=== PATIENT | female | born 1970 | race Caucasian/White ===

== ENCOUNTER 2016-06-07 09:47 | Observation (INO) | payer BC ==
[2016-06-07] MEDS ORDERED: ASPIRIN 81 MG CHEW PO STA (10:29)
[2016-06-07] MEDS ORDERED: SODIUM CHLORIDE 0.9% 1,000 ML IV STA (10:29)
[2016-06-07] MEDS ORDERED: ONDANSETRON 4 MG/2 ML VIAL IVP STA (10:29)
[2016-06-07] MEDS ORDERED: MECLIZINE 12.5 MG TAB PO STA (10:29)
--- NOTE | 2016-06-07 10:33 | ED ---
General Adult HPI <Bernabe Barber - Last Filed: 06/07/16 12:28> - General Source: patient, RN notes reviewed Mode of arrival: ambulatory Limitations: no limitations <Pratik Diaz - Last Filed: 06/07/16 12:43> - General Chief complaint: Chest Pain Stated complaint: Chest pain Time Seen by Provider: 06/07/16 10:20 - History of Present Illness Initial comments: Patient 45-year-old female who presents emergency room today with a chief complaint of chest pain over the last week. Patient does admit that she's felt some palpitations on and off. She does admit some discomfort of left-sided chest wall describes as pressure. Patient rates it a /10. She also admits that she's had some symptoms of dizziness off-and-on as well. She states increased dizziness this morning. She does admit to a family history of cardiac disease. She denies any other complaints or symptoms currently. Patient denies any recent fever, chills, shortness of breath, back pain, abdominal pain, nausea or vomiting, numbness or tingling, dysuria or hematuria, constipation or diarrhea, headaches or visual changes, or any other complaints. (Pratik Diaz) - Related Data Home Medications Medication Instructions Recorded Confirmed Ergocalciferol (Vitamin D2) 50,000 unit PO MOFR 06/07/16 06/07/16 [Vitamin D2] Allergies Allergy/AdvReac Type Severity Reaction Status Date / Time No Known Allergies Allergy Unverified 06/07/16 10:59 Review of Systems ROS Other: All systems not noted in ROS Statement are negative. <Bernabe Barber - Last Filed: 06/07/16 12:28> ROS Other: All systems not noted in ROS Statement are negative. <Pratik Diaz - Last Filed: 06/07/16 12:43> ROS Statement: Those systems with pertinent positive or pertinent negative responses have been documented in the HPI. Past Medical History Additional Past Medical History / Comment(s): Vitamin D Deff. History of Any Multi-Drug Resistant Organisms: None Reported Past Surgical History: Cholecystectomy Past Psychological History: No Psychological Hx Reported Smoking Status: Former smoker <Pratik Diaz - Last Filed: 06/07/16 12:43> General Exam <Bernabe Barber - Last Filed: 06/07/16 12:28> Limitations: no limitations <Pratik Diaz - Last Filed: 06/07/16 12:43> - General Exam Comments Initial Comments: General: The patient is awake and alert, in no distress, and does not appear acutely ill. Eye: Pupils are equal, round and reactive to light, extra-ocular movements are intact. No nystagmus. There is normal conjunctiva bilaterally. No signs of icterus. Ears, nose, mouth and throat: There are moist mucous membranes and no oral lesions. Neck: The neck is supple, there is no tenderness or JVD. Cardiovascular: There is a regular rate and rhythm. No murmur, rub or gallop is appreciated. Respiratory: Lungs are clear to auscultation, respirations are non-labored, breath sounds are equal. No wheezes, stridor, rales, or rhonchi. Musculoskeletal: Normal ROM, no tenderness. Strength 5/5. Sensation intact. Pulses equal bilaterally 2+. Neurological: A&O x 3. CN II-XII intact, There are no obvious motor or sensory deficits. Coordination appears grossly intact. Speech is normal. Skin: Skin is warm and dry and no rashes or lesions are noted. Psychiatric: Cooperative, appropriate mood & affect, normal judgment. (Pratik Diaz) Course <Bernabe Barber - Last Filed: 06/07/16 12:28> <Pratik Diaz - Last Filed: 06/07/16 12:43> Vital Signs 06/07/16 06/07/16 09:50 11:27 Temperature 98.3 F Pulse Rate 82 82 Respiratory 20 18 Rate Blood Pressure 163/94 122/81 O2 Sat by Pulse 100 96 Oximetry - Reevaluation(s) Reevaluation #1: 06/07/16 12:31 Patient reevaluated by myself, Dr. Barber. Patient resting comfortably in bed. Patient has had intermittent symptoms over the past week or 2. Patient updated on results and plan. Dr. Guillen has been paged for admission for Dr. Vieira. ( Bernabe Barber) EKG Findings - EKG Comments: EKG Findings:: EKG performed at 1002: A 12-lead EKG was performed and interpreted by me as showing the following: Rate is 85, and rhythm is normal sinus. There are normal QRS complexes and normal R-wave progression. ST segments have no elevation or depression, and VT segments appear normal. <Pratik Diaz - Last Filed: 06/07/16 12:43> Medical Decision Making - Lab Data Result diagrams: 06/07/16 10:43 06/07/16 10:43 <Bernabe Barber - Last Filed: 06/07/16 12:28> - Lab Data Result diagrams: 06/07/16 10:43 06/07/16 10:43 <Pratik Diaz - Last Filed: 06/07/16 12:43> - Lab Data Lab Results 06/07/16 06/07/16 06/07/16 Range/Units 10:43 10:43 10:43 WBC 7.1 (3.8-10.6) k/uL RBC 4.40 (3.80-5.40) m/uL Hgb 13.2 (11.4-16.0) gm/dL Hct 40.2 (34.0-46.0) % MCV 91.2 (80.0-100.0) fL MCH 29.9 (25.0-35.0) pg MCHC 32.8 (31.0-37.0) g/dL RDW 13.2 (11.5-15.5) % Plt Count 257 (150-450) k/uL Neutrophils % 68 % Lymphocytes % 24 % Monocytes % 3 % Eosinophils % 3 % Basophils % 1 % Neutrophils # 4.8 (1.3-7.7) k/uL Lymphocytes # 1.7 (1.0-4.8) k/uL Monocytes # 0.2 (0-1.0) k/uL Eosinophils # 0.2 (0-0.7) k/uL Basophils # 0.0 (0-0.2) k/uL PT (9.0-12.0) sec INR (<1.1) APTT (22.0-30.0) sec Sodium 142 (137-145) mmol/L Potassium 4.2 (3.5-5.1) mmol/L Chloride 108 H (98-107) mmol/L Carbon Dioxide 22 (22-30) mmol/L Anion Gap 12 mmol/L BUN 8 (7-17) mg/dL Creatinine 0.70 (0.52-1.04) mg/dL Est GFR (MDRD) Af Amer >60 (>60 ml/min/1.73 sqM) Est GFR (MDRD) Non-Af >60 (>60 ml/min/1.73 sqM) Glucose 126 H (74-99) mg/dL Calcium 8.9 (8.4-10.2) mg/dL Magnesium 1.8 (1.6-2.3) mg/dL Total Bilirubin 0.4 (0.2-1.3) mg/dL AST 22 (14-36) U/L ALT 27 (9-52) U/L Alkaline Phosphatase 94 (38-126) U/L Total Creatine Kinase 78 (30-135) U/L CK-MB (CK-2) 0.4 (0.0-2.4) ng/mL CK-MB (CK-2) Rel Index 0.5 Troponin I <0.012 (0.000-0.034) ng/mL Total Protein 6.8 (6.3-8.2) g/dL Albumin 3.6 (3.5-5.0) g/dL 06/07/16 Range/Units 10:43 WBC (3.8-10.6) k/uL RBC (3.80-5.40) m/uL Hgb (11.4-16.0) gm/dL Hct (34.0-46.0) % MCV (80.0-100.0) fL MCH (25.0-35.0) pg MCHC (31.0-37.0) g/dL RDW (11.5-15.5) % Plt Count (150-450) k/uL Neutrophils % % Lymphocytes % % Monocytes % % Eosinophils % % Basophils % % Neutrophils # (1.3-7.7) k/uL Lymphocytes # (1.0-4.8) k/uL Monocytes # (0-1.0) k/uL Eosinophils # (0-0.7) k/uL Basophils # (0-0.2) k/uL PT 10.0 (9.0-12.0) sec INR 1.0 (<1.1) APTT 24.8 (22.0-30.0) sec Sodium (137-145) mmol/L Potassium (3.5-5.1) mmol/L Chloride (98-107) mmol/L Carbon Dioxide (22-30) mmol/L Anion Gap mmol/L BUN (7-17) mg/dL Creatinine (0.52-1.04) mg/dL Est GFR (MDRD) Af Amer (>60 ml/min/1.73 sqM) Est GFR (MDRD) Non-Af (>60 ml/min/1.73 sqM) Glucose (74-99) mg/dL Calcium (8.4-10.2) mg/dL Magnesium (1.6-2.3) mg/dL Total Bilirubin (0.2-1.3) mg/dL AST (14-36) U/L ALT (9-52) U/L Alkaline Phosphatase (38-126) U/L Total Creatine Kinase (30-135) U/L CK-MB (CK-2) (0.0-2.4) ng/mL CK-MB (CK-2) Rel Index Troponin I (0.000-0.034) ng/mL Total Protein (6.3-8.2) g/dL Albumin (3.5-5.0) g/dL Disposition <Bernabe Barber - Last Filed: 06/07/16 12:28> Time of Disposition: 12:33 <Pratik Diaz - Last Filed: 06/07/16 12:43> Clinical Impression: Chest pain, Lightheaded Disposition: ADMITTED IP TO THIS HOSP Condition: Stable Instructions: Chest Pain (ED)
[2016-06-07 10:58] LABS: Basophils % (A) 1 %; CH 30.8; CHCM 33.9; Eosinophils # (A) 0.2 k/uL (0-0.7); Eosinophils % (A) 3 %; HCT 40.2 % (34.0-46.0); HDW 2.71; HGB 13.2 gm/dL (11.4-16.0); Luc # (Auto) 0.11; Luc % (Auto) 2; Lymphocytes # (A) 1.7 k/uL (1.0-4.8); Lymphocytes % (A) 24 %; MCH 29.9 pg (25.0-35.0); MCHC 32.8 g/dL (31.0-37.0); MCV 91.2 fL (80.0-100.0); Mean Platelet Volume 7.4; Monocytes # (A) 0.2 k/uL (0-1.0); Monocytes % (A) 3 %; Neutrophils # (A) 4.8 k/uL (1.3-7.7); Neutrophils % (A) 68 %; RDW 13.2 % (11.5-15.5); WBC 7.1 k/uL (3.8-10.6); WBC (Perox) 7.25
[2016-06-07 11:08] LABS: ALT 27 U/L (9-52); AST 22 U/L (14-36); Alkaline Phosphatase 94 U/L (38-126); Anion Gap 12 mmol/L; Blood Urea Nitrogen 8 mg/dL (7-17); Calcium 8.9 mg/dL (8.4-10.2); Carbon Dioxide 22 mmol/L (22-30); Chloride 108 mmol/L (98-107); Glucose 126 mg/dL (74-99); Magnesium 1.8 mg/dL (1.6-2.3); Non-African American GFR(MDRD) >60 (>60 ml/min/1.73 sqM); Potassium 4.2 mmol/L (3.5-5.1); Sodium 142 mmol/L (137-145); Total Bilirubin 0.4 mg/dL (0.2-1.3); Total Protein 6.8 g/dL (6.3-8.2)
[2016-06-07 11:23] LABS: Creatine Kinase 78 U/L (30-135)
[2016-06-07 11:25] LABS: Partial Thromboplastin Time 24.8 sec (22.0-30.0)
[2016-06-07 11:36] LABS: Creatine Kinase MB 0.4 ng/mL (0.0-2.4); Troponin I <0.012 ng/mL (0.000-0.034)
--- NOTE | 2016-06-07 11:38 | XR ---
EXAMINATION TYPE: XR chest 2V DATE OF EXAM: 06/07/2016 11:34 AM COMPARISON: NONE HISTORY: Intermittent chest pain for a week. TECHNIQUE: Frontal and lateral views of the chest are obtained. FINDINGS: There is no focal air space opacity, pleural effusion, or pneumothorax seen. The cardiac silhouette size is within normal limits. The osseous structures are intact. Cholecystectomy clips a re noted on lateral view. IMPRESSION: No acute pulmonary process.
[2016-06-07] MEDS ORDERED: SODIUM CHLORIDE 0.9% 1,000 ML IV ONE (12:44)
[2016-06-07] MEDS ORDERED: NALOXONE 0.4 MG/ML 1 ML VIAL IV PRN (12:44)
[2016-06-07] MEDS ORDERED: HEPARIN SODIUM,PORCINE 5,000 UNIT/ML 1 ML VIAL IV ONE (12:45)
[2016-06-07] MEDS ORDERED: HEPARIN SODIUM,PORCINE/D5W PMX 25,000 UNIT in DEXTROSE/WATER 1 500ML.BAG IV SCH (12:45)
[2016-06-07] MEDS ORDERED: NITROGLYCERIN SL TABS 0.4 MG TAB SUBLINGUAL PRN (12:45)
[2016-06-07 16:25] VITALS: RESP 16
[2016-06-07 17:28] LABS: Creatine Kinase 62 U/L (30-135)
[2016-06-07 17:42] LABS: Creatine Kinase MB 0.3 ng/mL (0.0-2.4); Troponin I <0.012 ng/mL (0.000-0.034)
[2016-06-07] MEDS ORDERED: TEMAZEPAM 15 MG CAP PO PRN (21:36)
[2016-06-07] MEDS ORDERED: ALPRAZolam 0.25 MG TAB PO PRN (21:36)
[2016-06-08 01:14] LABS: Creatine Kinase 49 U/L (30-135)
[2016-06-08 01:28] LABS: Creatine Kinase MB <0.2 ng/mL (0.0-2.4); Troponin I <0.012 ng/mL (0.000-0.034)
[2016-06-08] MEDS: METOPROLOL TARTRATE 12.5 MG TAB PO SCH ×2 (01:35→11:04)
[2016-06-08 06:58] LABS: Basophils % (A) 1 %; CHCM 32.2; Eosinophils # (A) 0.2 k/uL (0-0.7); Eosinophils % (A) 3 %; HCT 37.3 % (34.0-46.0); HGB 11.8 gm/dL (11.4-16.0); Luc # (Auto) 0.12; Luc % (Auto) 2; Lymphocytes # (A) 2.2 k/uL (1.0-4.8); Lymphocytes % (A) 38 %; MCH 29.7 pg (25.0-35.0); MCHC 31.8 g/dL (31.0-37.0); MCV 93.6 fL (80.0-100.0); Mean Platelet Volume 6.6; Monocytes # (A) 0.3 k/uL (0-1.0); Monocytes % (A) 5 %; Neutrophils % (A) 51 %; RBC 3.99 m/uL (3.80-5.40); RDW 13.2 % (11.5-15.5); WBC 5.9 k/uL (3.8-10.6); WBC (Perox) 6.15
[2016-06-08 07:07] LABS: Anion Gap 7 mmol/L; Blood Urea Nitrogen 10 mg/dL (7-17); Calcium 8.5 mg/dL (8.4-10.2); Carbon Dioxide 25 mmol/L (22-30); Chloride 109 mmol/L (98-107); Cholesterol 132 mg/dL (<200); Glucose 87 mg/dL (74-99); HDL Cholesterol 47 mg/dL (40-60); Non-African American GFR(MDRD) >60 (>60 ml/min/1.73 sqM); Potassium 4.2 mmol/L (3.5-5.1); Sodium 141 mmol/L (137-145); Triglycerides 120 mg/dL (<150)
[2016-06-08] MEDS ORDERED: ASPIRIN 325 MG TAB PO SCH (09:00)
--- NOTE | 2016-06-08 09:09 | P.CRDCN ---
History of Present Illness Consult date: 06/08/16 Consult reason: chest pain History of present illness: 45-year-old lady with family history of coronary artery disease comes in complaining of chest pain. She describes it as a sharp precordial pain without definite radiation to neck, back unassociated with diaphoresis and unrelated to exertion she had an episode of chest pain almost 3 weeks ago and came in yesterday she does not have any exertional angina exertional shortness of breath paroxysmal nocturnal dyspnea and orthopnea. Since being admitted she is pain-free hemodynamically stable EKG does not reveal ischemic changes and cardiac enzymes have been negative Review of Systems Constitutional: Denies chills. Denies fever. Eyes: Denies blurred vision. Denies pain. Ears, nose, mouth and throat: Denies headache. Denies sore throat. Cardiovascular: has chest pain. Denies shortness of breath. Respiratory: Denies cough. Gastrointestinal: Denies abdominal pain. Denies diarrhea. Denies nausea. Denies vomiting. Musculoskeletal: Denies myalgias. Integumentary: Denies pruritus. Denies rash. Neurological: Denies numbness. Denies weakness. Psychiatric: Denies anxiety. Denies depression. Endocrine: Denies fatigue. Denies weight change. Genitourinary: Denies burning, hematuria, frequency of urination. Hematological: No anemia or excess bleeding. Past Medical History Additional Past Medical History / Comment(s): Vitamin D Deff. History of Any Multi-Drug Resistant Organisms: None Reported Past Surgical History: Cholecystectomy, Orthopedic Surgery Additional Past Surgical History / Comment(s): L hand fracture repair with pins Past Anesthesia/Blood Transfusion Reactions: No Reported Reaction Past Psychological History: No Psychological Hx Reported Additional Psychological History / Comment(s): Pt resides with spouse and 8 children, 7 of which are under the age of 18yrs. She is independent. Smoking Status: Former smoker Additional Past Alcohol Use History / Comment(s): Pt started smoking as a teen and quit in 1995. Past Drug Use History: None Reported - Past Family History Father History Unknown: Yes Mother Family Medical History: Coronary Artery Disease (CAD), Myocardial Infarction (CT ) Additional Family Medical History / Comment(s): Mother had a CT at the age of 60yrs. She is now 69yrs old. Medications and Allergies Home Medications Medication Instructions Recorded Confirmed Type Ergocalciferol (Vitamin D2) 50,000 unit PO MOFR 06/07/16 06/07/16 History [Vitamin D2] Allergies Allergy/AdvReac Type Severity Reaction Status Date / Time No Known Allergies Allergy Unverified 06/07/16 10:59 Physical Exam Vitals: Vital Signs Temp Pulse Pulse Resp BP BP Pulse Ox 06/08/16 07:31 98.2 F 61 16 117/69 95 06/08/16 04:00 98 F 69 16 126/74 96 06/08/16 00:00 97.7 F 61 16 111/64 96 06/07/16 20:00 97.8 F 90 16 114/71 97 06/07/16 16:00 98.1 F 73 16 120/91 95 06/07/16 15:31 18 06/07/16 14:40 98.3 F 67 18 144/83 95 06/07/16 14:14 67 18 144/83 95 06/07/16 13:27 71 18 144/83 97 Intake and Output 06/07/16 06/08/16 06/08/16 22:59 06:59 14:59 Intake Total 540 238.238 Balance 540 238.238 Intake: Intake, IV Titration 238.238 Amount Heparin Sodium,Porcine/ 238.238 D5w Pmx 25,000 unit In Dextrose/Water 1 500ml. bag @ 7.61 UNITS/KG/HR 20 .02 mls/hr IV .Q24H [facility] Rx#:[id number] Oral 540 Other: Voiding Method Toilet Toilet # Voids 1 1 Weight 132.1 kg General: The patient is awake and alert, in no distress, and does not appear acutely ill. Skin: Skin is warm and dry and no rashes or lesions are noted. Eye: Pupils are equal, round and reactive to light, extra-ocular movements are intact; there is normal conjunctiva bilaterally. Ears, nose, mouth and throat: There are moist mucous membranes and no oral lesions. Neck: The neck is supple, there is no tenderness or JVD. Cardiovascular: [ There is a regular rate and rhythm.][ No murmur, rub or gallop is appreciated.] Respiratory: Lungs are clear to auscultation, respirations are non-labored, breath sounds are equal. Gastrointestinal: Soft, non-distended, non-tender abdomen without masses or organomegaly noted. There is no rebound or guarding present. Bowel sounds are unremarkable. Back: There is no tenderness to palpation in the midline. There is no obvious deformity. Musculoskeletal: Normal ROM, no tenderness, There is no pedal edema. There is no calf tenderness or swelling. Extremities:[ No edema.] Vascular: [Femoral pulse is normal.][ Posterior tibial pulses are normal .][ Dorsalis pedis is palpable.] Neurological: CN II-XII intact. There are no obvious motor or sensory deficits. Speech is normal. Psychiatric: Cooperative, appropriate mood & affect, normal judgment. Results 06/08/16 06:28 06/08/16 06:28 Cardiac Enzymes 06/07/16 06/07/16 Range/Units 16:30 23:53 CK-MB (CK-2) 0.3 <0.2 (0.0-2.4) ng/mL Troponin I <0.012 <0.012 (0.000-0.034) ng/mL Coagulation 06/07/16 06/08/16 Range/Units 21:44 06:28 APTT 28.5 39.1 H (22.0-30.0) sec Lipids 06/08/16 Range/Units 06:28 Triglycerides 120 (<150) mg/dL Cholesterol 132 (<200) mg/dL HDL Cholesterol 47 (40-60) mg/dL CBC 06/08/16 Range/Units 06:28 WBC 5.9 (3.8-10.6) k/uL RBC 3.99 (3.80-5.40) m/uL Hgb 11.8 (11.4-16.0) gm/dL Hct 37.3 (34.0-46.0) % Plt Count 219 (150-450) k/uL Comprehensive Metabolic Panel 06/08/16 Range/Units 06:28 Sodium 141 (137-145) mmol/L Potassium 4.2 (3.5-5.1) mmol/L Chloride 109 H (98-107) mmol/L Carbon Dioxide 25 (22-30) mmol/L BUN 10 (7-17) mg/dL Creatinine 0.78 (0.52-1.04) mg/dL Glucose 87 (74-99) mg/dL Calcium 8.5 (8.4-10.2) mg/dL Current Medications Generic Name Dose Route Start Last Admin Trade Name Freq PRN Reason Stop Dose Admin Alprazolam 0.25 mg 06/07/16 21:36 Xanax PO TID PRN Anxiety Aspirin 325 mg 06/08/16 09:00 Aspirin PO DAILY [facility] Metoprolol Tartrate 12.5 mg 06/07/16 21:45 06/08/16 01:35 Lopressor PO Not Given BID [facility] Naloxone HCl 0.2 mg 06/07/16 12:44 Narcan IV Q2M PRN Opioid Reversal Nitroglycerin 0.4 mg 06/07/16 12:45 Nitrostat SUBLINGUAL Q5M PRN Chest Pain Temazepam 15 mg 06/07/16 21:36 Restoril PO HS PRN Insomnia Intake and Output 06/07/16 06/08/16 06/08/16 22:59 06:59 14:59 Intake Total 540 238.238 Balance 540 238.238 Intake: Intake, IV Titration 238.238 Amount Heparin Sodium,Porcine/ 238.238 D5w Pmx 25,000 unit In Dextrose/Water 1 500ml. bag @ 7.61 UNITS/KG/HR 20 .02 mls/hr IV .Q24H [facility] Rx#:[id number] Oral 540 Other: Voiding Method Toilet Toilet # Voids 1 1 Weight 132.1 kg 06/08/16 06:28 06/08/16 06:28 EKG Interpretations (text) Normal sinus rhythm without acute ST-T wave changes Assessment and Plan Plan: Atypical chest pain Patient will undergo stress test and echo further plans based on test results
[2016-06-08 12:11] VITALS: BP 130/80; PULSE 85; TEMP 98.6
--- NOTE | 2016-06-08 12:38 | HP ---
DATE OF ADMISSION: The chief complaint is chest pain. HISTORY OF PRESENT ILLNESS: This is a 45-year-old woman with a past medical history of vitamin D deficiency, history of cholecystectomy, history of DJD who is residing with her spouse and her children. Is complaining of chest pain. The patient was felt over the last one week. The patient also had some palpitation on and off. The discomfort is mostly central polar and left-sided and pressure which was fluctuating. Patient also had dizziness on and off . There is no radiation also in the setting of palpation. Because of the concerns, the patient came to [facility] and admitted for further evaluation and treatment. An EKG on admission was normal and chest x-ray showed no acute process. The lab values are noted which showed CBC was within normal limits and glucose 126. Patient admitted for further evaluation and treatment. There is no history of an fever, rigors or chills. No history of headache, loss of consciousness, seizures. PAST MEDICAL HISTORY: History of cholecystectomy, history of DJD, vitamin D deficiency. Medications prior to admission include: 1. Vitamin D2 fifty thousand Tuesday, Tuesday, Tuesday. Allergies are none. FAMILY HISTORY: History of coronary artery disease and myocardial infarction. Mother had myocardial infarction at age 60, she is now 69 years old. SOCIAL HISTORY: Previous history of smoking, no history of current smoking or alcohol. REVIEW OF SYSTEMS: ENT: No diminished vision. No diminished hearing. CARDIOVASCULAR SYSTEM: As mentioned earlier. RESPIRATORY: As mentioned earlier. GI: No nausea. : No dysuria. NERVOUS SYSTEM: As mentioned earlier. MUSCULOSKELETAL: As mentioned earlier. DERMATOLOGY: Negative. ENDOCRINE: No history of diabetes or hypothyroidism. CONSTITUTIONAL: Negative. HEMATOLOGY/ONCOLOGY: No history of anemia. PSYCHIATRY: As mentioned earlier. PHYSICAL EXAMINATION: Patient is alert and oriented x3. The pulse is 67, blood pressure 144/83, respirations 18, temperature 98.3. Pulse ox 94% on 2 L. HEENT: Conjunctivae normal, oral mucosa moist. NECK: No jugular venous distension, no lymph node enlargement, no carotid bruit. CARDIOVASCULAR: S1, S2, muffled, no S3, no S4. RESPIRATORY: Breath sounds diminished at the bases. No rhonchi, no crackles. Abdomen is soft, nontender, no mass palpable. EXTREMITIES: Legs no edema, no swelling. NERVOUS SYSTEM: Higher functions as mentioned, moves all 4 limbs, no focal motor deficits. LYMPHATICS: No lymph node enlargement in the neck, axillae or groin. SKIN: No ulcer, rash or bleeding. JOINTS: No active deformity. LABS: CBC with chloride 108, glucose 126. Labs are noted as mentioned. ASSESSMENT: 1. Chest pain, possible [place]a. 2. Hypertension. 3. Increased random blood sugar. 4. Obesity with a body mass index of 41.8. 5. History of vitamin D deficiency. 6. History of degenerative joint disease. 7. History of cholecystectomy. 8. Remote history of nicotine dependence. 9. Family history of coronary disease. 10. FULL CODE. RECOMMENDATION: In this 45-year-old woman who presented with multiple complex medical issues, will monitor the patient closely. Continue with the current medications and symptomatic treatment. protocol to rule out myocardial infarction. Cardiology consulted. See orders for details. Will initiate beta blockers, and as well as Ecotrin also. Possible stress test. Guarded prognosis because of multiple complex medical issues. Further recommendations to follow. Discussed with the patient. A copy of this dictation is being forwarded to Jessie Vieira who is the primary physician. PROMISE
--- NOTE | 2016-06-08 14:42 | ECHOS ---
DATE OF SERVICE: 06/08/16. AGE: 45Y SEX: F HT: 70" WT: 291lbs. Protocol Quirino: Others: Stage: 3 Dur. of Exercise: 8:00 *Heart Rate Blood Pressure *Rest: 78 Rest: 150/72 * *Max. Achieved: 152 Maximum BP: 174/106 85% PMHR: 147 100% PMHR: 173 *METS: 10.1 INDICATIONS: Chest pain. MEDICATIONS: Baseline rhythm is sinus mechanism, rate of 88, normal axis and intervals. Normal electrocardiogram. Baseline blood pressure 150/72 mmHg. The patient exercised Quirino protocol for 8 minutes reaching peak rate of 152 beats per minute, which is equal to 88% maximum predicted heart rate; peak blood pressure 147/61 mmHg The test was terminated secondary to fatigue. There was no chest pain. Electrocardiographic monitoring reveal no evidence of diagnostic ischemic ST deviation. FINDINGS: Baseline echocardiogram revealed normal wall motion. At peak exercise there was normal wall motion augmentation with no hypokinesis or dyskinesis. CONCLUSION: 1. Average exercise tolerance with normal electrocardiograph response to exercise. 2. Normal stress echocardiogram with no evidence of stress-induced ischemia.
--- NOTE | 2016-06-09 14:30 | DS ---
DATE OF ADMISSION: 06/07/2016 DATE OF DISCHARGE: 06/08/2016 FINAL DIAGNOSES: 1. Chest pain, possible musculoskeletal. Myocardial infarction ruled out. Stress test was negative. 2. Hypertension. 3. Increased random blood sugar. 4. Obesity with a body mass index of 41.8. 5. History of vitamin D deficiency. 6. History of degenerative joint disease. 7. History of cholecystectomy. 8. Remote history of nicotine dependence. 9. Family history of coronary artery disease. 10. FULL CODE. DISCHARGE DISPOSITION: The patient will be discharged in a stable condition with guarded prognosis. Discharge cleared by Cardiology. HISTORY OF PRESENT ILLNESS: This 45-year-old woman with a past medical history of multiple medical problems being followed by Dr. Jessie Vieira in the outpatient setting, was admitted with chest pain, myocardial infarction ruled out. Cardiology performed a stress which was negative. On exam, vitals are stable. CARDIOVASCULAR: S1, S2, muffled. ABDOMEN: Soft. NERVOUS SYSTEM: No focal deficits. DISCHARGE ADVICE: 1. Diet is cardiac. 2. Activity limited until followup. 3. Follow up with Dr. Jessie Vieira in 2 to 3 days. The medications are: 1. Vitamin D2 fifty thousand as before. 2. Tylenol p.r.n. for pain. Follow up with Cardiology as mentioned.
== END 2016-06-08 16:40 | disposition home or self-care (01) ==
LOC: EC 09:47 → 3OBS 12:44
PROVIDERS: ADMIT Hospitalist; ATTEND Hospitalist
DX: R07.89 Other chest pain (principal); R00.2 Palpitations; R42 Dizziness and giddiness; E55.9 Vitamin D deficiency, unspecified; I10 Essential (primary) hypertension; E66.9 Obesity, unspecified; Z68.41 Body mass index [BMI] 40.0-44.9, adult; R73.9 Hyperglycemia, unspecified; M19.90 Unspecified osteoarthritis, unspecified site; Z79.899 Other long term (current) drug therapy; Z82.49 Family history of ischemic heart disease and other diseases of the circulatory system; Z87.891 Personal history of nicotine dependence; Z90.49 Acquired absence of other specified parts of digestive tract
CPT/HCPCS: 36415; 94760; 93005; 93017; 93350; 80061; 80053; 80048; 82550; 82553; 83735; 84484; 85025 ×2; 85610; 85730 ×2; 71020; 99285; 96365; 96376; 96375; 96361 ×2; G0378 ×2; J1644 ×2; J2405; 96366